=== PATIENT | female | born 1950 | race Caucasian/White ===

== ENCOUNTER → 2024-06-10 | Outpatient (CLI) | payer OTHER, SELFPAY ==
--- NOTE | 2024-06-10 08:03 | XR_ITS ---
Examination: Diagnostic digital mammography, unilateral, left Computer aided detection 3-D breast Tomosynthesis, unilateral Date and time of exam: June 10, 2024 at 0811 hours INDICATIONS: Status post stereotactic breast biopsy microcalcifications outer lower left breast May 08, 2024 Technique: Nonmagnified MLO, CC views of the left breast have been obtained, reconstructed from 3-D Tomosynthesis images. R2 computer aided detection program utilized for evaluation of suspicious masses and/or abnormal calcifications. 3-D Tomosynthesis images obtained. Findings: The breast is heterogeneously dense, which may obscure small masses Breast biopsy marker upper outer left breast with a few calcifications No suspicious mass Impression: BI-RADS category 3: Probably benign findings Six-month left mammogram follow-up is needed
== END | disposition home or self-care (01) ==
LOC: CDIM 08:00
PROVIDERS: Referring Provider Surgery; Visit Provider Surgery
DX: R92.332 Mammographic heterogeneous density, left breast (principal); R92.0 Mammographic microcalcification found on diagnostic imaging of breast; C50.512 Malignant neoplasm of lower-outer quadrant of left female breast
CPT/HCPCS: 77061; 77065; G0279

== ENCOUNTER → 2024-06-19 | Outpatient (CLI) | payer OTHER, SELFPAY ==
[2024-06-19 13:24] LABS: Basophils # (Auto) 0.1 Thou/mm3 (0.0-0.2); Basophils % (Auto) 1 % (0-2.5); Eosinophils # (Auto) 0.3 Thou/mm3 (0.0-0.5); Eosinophils % (Auto) 5 % (0-10); Immature Granulocytes % (Auto) 0 % (0-0); Immature Granulocytes Auto 0.01 Thou/mm3 (0.00-0.00); Lymphocytes # (Auto) 1.6 Thou/mm3 (1.0-4.8); Lymphocytes % (Auto) 29 % (10-50); Mean Corpuscular HGB Conc 34.1 g/dl (31.0-37.0); Mean Corpuscular Volume 88 fL (80-100); Monocytes # (Auto) 0.6 Thou/mm3 (0.0-0.8); Monocytes % (Auto) 12 % (0-12); Neutrophils # (Auto) 2.9 Thou/mm3 (1.8-7.7); Neutrophils % (Auto) 53 % (37-80); Nucleated Red Blood Cell % 0 /100 WBC (0); Platelet Count 247 Thou/mm3 (140-440); RDW Standard Deviation 39.8 fL (36.4-46.3); Red Blood Count 4.66 Miln/mm3 (4.00-5.20); White Blood Count 5.4 Thou/mm3 (3.6-11.0)
[2024-06-19 13:39] LABS: Anion Gap 4 (7-16); BUN/Creatinine Ratio 17 Ratio (12-20); Blood Urea Nitrogen 17 mg/dL (9-23); Calcium 9.1 mg/dL (8.3-10.6); Carbon Dioxide 31.8 mMol/L (20.0-31.0); Chloride 100 mMol/L (98-107); Glucose 105 mg/dL (74-106); Osmolality,Calculated 273 (275-295); Potassium 3.6 mMol/L (3.4-5.1); Sodium 136 mMol/L (136-145); eGFR 59 See Note
== END | disposition home or self-care (01) ==
LOC: COPL 12:57
PROVIDERS: PCP Nurse Practitioner Family; Referring Provider Surgery; Visit Provider Surgery
DX: C50.512 Malignant neoplasm of lower-outer quadrant of left female breast (principal)
CPT/HCPCS: 36415; 80048; 85025

== ENCOUNTER 2024-08-04 08:43 | Outpatient (RCR) | payer OTHER, SELFPAY ==
--- NOTE | 2024-08-04 10:20 | CTCCONSULT_ITS ---
Patient: DARSHAN MEDLEY : 1950 MR#: [id number] Page 2 of 2 CONSULTATION NOTE DATE OF CONSULTATION: 08/04/2024 NAME: DARSHAN MEDLEY ACCOUNT: [id number] : 1950 AGE: 74 REFERRING PHYSICIAN: Can Buck MD PRIMARY PHYSICIAN: Can Buck MD REASON FOR VISIT: Establishing care for breast cancer ONCOLOGY HISTORY: DIAGNOSIS: Invasive ductal carcinoma of the left breast s/p lumpectomy on 06/25/2024 DATE OF DIAGNOSIS: 05/08/2024 STAGE/TNM: Stage I T1 a N X M X ER/NE positive HER2 negative Pathology showed invasive ductal carcinoma 2 x 1 x 1 mm overall grade 1 DCIS not identified TREATMENT HISTORY: Care?Plan Start?Date Cycle Day Intent Anastrozole 1 mg started on 08/04/2024 HISTORY OF PRESENT ILLNESS: 74-year-old female with a history of hypertension anxiety heart disease and skin cancers including ba arsh cell carcinoma and squamous cell cancer is recently diagnosed with breast cancer. Patient have l umpectomy and was found to have a very small tumor. No lymph nodes were removed and all the margins were negative. Patient have healed well from surgery and here to establish care. OTHER MEDICAL HISTORY/CONDITIONS: HTN Heart?valve?issue?-??SagarReddy Jarvis?TKA-?2019;?2020 T?and?A?-?age?2 FAMILY HISTORY: Father:?Bladder?-?dx?78 Mother:?Glioblastoma?-?age?80 Sibling:?Sister?-?appendiceal?-?66 Cancer History:?Mat great-grandmother- breast; Mat grandma- esphoagus - dx 8 SOCIAL HISTORY: Occupational?History:?Retired - [employer] Education?Level:?Completed High School Marital?Status:? Tobacco?Use:?Denies?- ETOH?Use:?Glass?wine?daily?-?x?40yrs Drug?Note:?Denies Social?History?Note:?Lives?with? [employer] FOREMAN HISTORY: Menarche?-?Age:?13 Menopause:?age?53 :?3 Live?Births:?3 Age?1st?:?20 MEDICATIONS: 1. None Medications Last Reconciled by Phylicia Lyons RN on 08/04/2024 ALLERGIES: Penicillins REVIEW OF SYSTEMS: A complete 14-point review of systems was performed and is negative except as noted in interval histo ry. PHYSICAL EXAMINATION: VITAL SIGNS: Temperature?99.6, B/P?145/80, Height?64?inches, Oxygen?Saturation?97% Weight?210?lbs PAIN: 0 - No pain ECOG Performance Status: 0 - Asymptomatic and fully active GENERAL APPEARANCE: Appears well, in no apparent distress, appropriately interactive. HEENT: Normocephalic, no temporal wasting, normal conjunctiva, no scleral icterus, normal hearing, li ps without lesions, neck normal range of motion. CARDIOVASCULAR: Not assessed. PULMONARY: Normal respiratory effort, no respiratory distress or use of accessory muscles, speaking i n full sentences, no tachypnea. EXTREMITIES: No pedal edema or cyanosis. SKIN: Normal skin appearance. NEUROLOGIC: Alert and oriented x4. PSHYCHIATRIC: Appropriate affect, mood normal, behavior normal, intact thought and speech. Breast examination reveals well-healed site on the left breast. No palpable masses in either breast or axilla LABORATORY DATA: I have personally reviewed and interpreted each of the patient?s relevant lab tests, abnormal finding s are below: Date ASSESSMENT/PLAN: #1 stage I breast cancer Patient have a very small tumor which was removed with a lumpectomy No lymph nodes were accessed Will start on anastrozole 1 mg tablet and plan for at least 7 years Bone density reviewed and was normal in 2022 Advised to take calcium and vitamin D3 daily Will see her back in 4 weeks to see the tolerance to the drug Discussed side effects of the medication including hot flashes vaginal dryness low sexual libido and the risk of worsening osteoporosis As patient have strong bones will continue to monitor the bone with bone density CBC CMP bone density RETURN TO CLINIC: 4 weeks with video visit BILLING AND COMPLIANCE: I reviewed external records from providers outside my specialty as summarized above. I spent a total of 50 minutes on this patient?s care on the day of their visit excluding time spent related to any bi lled procedures. This time includes time spent with the patient as well as time spent documenting in the medical record, reviewing patients records and tests, obtaining history, placing orders, communi cating with other healthcare professionals, counseling the patient, family or caregiver, and/or care coordination for the diagnoses above. Electronically Signed by: Serge Henry MD T: 10:16 AM CC: PCP: Can Buck Referring: Can Buck This document was completed utilizing speech recognition software. Grammatical errors, random word in sertions, pronoun errors, and incomplete sentences are an occasional consequence of this system due t o software limitations, ambient noise, and hardware issues. Any formal questions or concerns about th e content, text or information contained within the body of this dictation should be directly address ed to the provider for clarification.
== END 2024-08-08 23:59 | disposition home or self-care (01) ==
LOC: SCTC 08:43
PROVIDERS: PCP Nurse Practitioner Family; Referring Provider Surgery; Visit Provider Internal Medicine Hematology & Oncology
DX: C50.512 Malignant neoplasm of lower-outer quadrant of left female breast (principal); Z17.0 Estrogen receptor positive status [ER+]; Z17.21 Progesterone receptor positive status; Z17.32 Human epidermal growth factor receptor 2 negative status; Z79.811 Long term (current) use of aromatase inhibitors; M81.0 Age-related osteoporosis without current pathological fracture; Z90.12 Acquired absence of left breast and nipple
CPT/HCPCS: 99213; G0463

== ENCOUNTER → 2024-09-02 | Outpatient (CLI) | payer OTHER, SELFPAY ==
[2024-09-02 13:56] LABS: Basophils # (Auto) 0.1 Thou/mm3 (0.0-0.2); Basophils % (Auto) 1 % (0-2.5); Eosinophils # (Auto) 0.3 Thou/mm3 (0.0-0.5); Eosinophils % (Auto) 4 % (0-10); Hematocrit 41.1 % (36.0-46.0); Hemoglobin 13.9 g/dL (12.0-16.0); Immature Granulocytes % (Auto) 0 % (0-0); Immature Granulocytes Auto 0.01 Thou/mm3 (0.00-0.00); Lymphocytes # (Auto) 2.1 Thou/mm3 (1.0-4.8); Lymphocytes % (Auto) 34 % (10-50); Mean Corpuscular HGB Conc 33.8 g/dl (31.0-37.0); Mean Corpuscular Hemoglobin 29.8 pg (25.0-35.0); Mean Corpuscular Volume 88 fL (80-100); Monocytes # (Auto) 0.7 Thou/mm3 (0.0-0.8); Monocytes % (Auto) 11 % (0-12); Neutrophils # (Auto) 3.1 Thou/mm3 (1.8-7.7); Neutrophils % (Auto) 50 % (37-80); Nucleated Red Blood Cell % 0 /100 WBC (0); Platelet Count 257 Thou/mm3 (140-440); RDW Standard Deviation 40.9 fL (36.4-46.3); Red Blood Count 4.67 Miln/mm3 (4.00-5.20); White Blood Count 6.1 Thou/mm3 (3.6-11.0)
[2024-09-02 14:37] LABS: Alanine Aminotransferase 17 U/L (10-49); Albumin, Serum 3.9 gm/dL (3.4-4.8); Albumin/Globulin Ratio 1.6 (1.2-2.2); Anion Gap 8 (7-16); Aspartate Amino Transferase 19 U/L (0-34); BUN/Creatinine Ratio 15 Ratio (12-20); Bilirubin,Total 0.7 mg/dL (0.3-1.2); Blood Urea Nitrogen 17 mg/dL (9-23); Calcium 9.3 mg/dL (8.3-10.6); Calcium (Corrected) 9.4 mg/dL (8.5-10.1); Carbon Dioxide 30.1 mMol/L (20.0-31.0); Chloride 100 mMol/L (98-107); Creatinine (Component) 1.1 mg/dL (0.6-1.3); Globulin 2.5 gm/dL (2.3-3.5); Glucose 97 mg/dL (74-106); Osmolality,Calculated 277 (275-295); Potassium 4.2 mMol/L (3.4-5.1); Sodium 138 mMol/L (136-145); Total Protein 6.4 gm/dL (5.7-8.2); eGFR 52 See Note
[2024-09-02 14:55] LABS: Alkaline Phosphatase 69 U/L (46-116)
== END | disposition home or self-care (01) ==
LOC: SCTO 13:30
PROVIDERS: PCP Family Medicine; Referring Provider Internal Medicine Hematology & Oncology; Visit Provider Internal Medicine Hematology & Oncology
DX: C50.412 Malignant neoplasm of upper-outer quadrant of left female breast (principal)
CPT/HCPCS: 36415; 80053; 85025

== ENCOUNTER 2024-09-11 15:07 | Outpatient (RCR) | payer OTHER, SELFPAY ==
--- NOTE | 2024-09-15 01:17 | CTCFLWUP_ITS ---
Patient: DARSHAN MEDLEY : 1950 Page 2 of 4 FOLLOW UP NOTE DATE OF SERVICE: 09/11/2024 NAME: DARSHAN MEDLEY ACCOUNT: [id number] : 1950 AGE: 74 INTERVAL HISTORY: Patient was started on anastrozole and video appointment was made to see if patient is tolerating the medicine well. Patient is doing well and denies any complaints ONCOLOGY HISTORY:?[facility] Hx? DIAGNOSIS: Invasive ductal carcinoma of the left breast s/p lumpectomy on 06/25/2024 DATE OF DIAGNOSIS: 05/08/2024 STAGE/TNM: Stage I T1 a N X M X ER/NH positive HER2 negative Pathology showed invasive ductal carcinoma 2 x 1 x 1 mm overall grade 1 DCIS not identified TREATMENT HISTORY: Care?Plan Start?Date Cycle Day Intent HISTORY OF PRESENT ILLNESS: 74-year-old female with a history of hypertension anxiety heart disease and skin cancers including basal cell carcinoma and squamous cell cancer is recently diagnosed with breast cancer. Patient have lumpectomy and was found to have a very small tumor. No lymph nodes were removed and all the margins were negative. Patient have healed well from surgery and here to establish care. OTHER MEDICAL HISTORY/CONDITIONS: HTN Heart?valve?issue?-??SagarReddy Jarvis?TKA-?2019;?2020 T?and?A?-?age?2 FAMILY HISTORY: Father:?Bladder?-?dx?78 Mother:?Glioblastoma?-?age?80 Sibling:?Sister?-?appendiceal?-?66 Cancer History:?Mat great-grandmother- breast; Mat grandma- esphoagus - dx 8 SOCIAL HISTORY: Occupational?History:?Retired - [employer] Education?Level:?Completed High School Marital?Status:? Tobacco?Use:?Denies?- ETOH?Use:?Glass?wine?daily?-?x?40yrs Drug?Note:?Denies Social?History?Note:?Lives?with? [employer] JUDGE HISTORY: Menarche?-?Age:?13 Menopause:?age?53 :?3 Live?Births:?3 Age?1st?:?20 MEDICATIONS: 1. ALPRAZolam - 0.5 mg 0.5 tab Every day before sleep 2. anastrozole - 1 mg 1 tab Daily 3. atenolol - 25 mg 1 tab Twice a Day 4. hydrochlorothiazide - 25 mg 1 tab Daily 5. omeprazole - 20 mg 1 Every other day?Palabra Meds? Medications Last Reconciled by Page Serrano MA on 09/11/2024 ALLERGIES: Penicillins REVIEW OF SYSTEMS: A complete 14-point review of systems was performed and is negative except as noted in interval history. PHYSICAL EXAMINATION:?[facility] PE? VITAL SIGNS: PAIN: 0 - No pain ECOG Performance Status: 0 - Asymptomatic and fully active GENERAL APPEARANCE: Appears well, in no apparent distress, appropriately interactive. HEENT: Normocephalic, no temporal wasting, normal conjunctiva, no scleral icterus, normal hearing, lips without lesions, neck normal range of motion. CARDIOVASCULAR: Not assessed. PULMONARY: Normal respiratory effort, no respiratory distress or use of accessory muscles, speaking in full sentences, no tachypnea. EXTREMITIES: No pedal edema or cyanosis. SKIN: Normal skin appearance. NEUROLOGIC: Alert and oriented x4. PSHYCHIATRIC: Appropriate affect, mood normal, behavior normal, intact thought and speech. Breast examination reveals well-healed site on the left breast. No palpable masses in either breast or axilla LABORATORY DATA: I have personally reviewed and interpreted each of the patient?s relevant lab tests, abnormal findings are below: Date 09/02/24 ??WHITE?BLOOD?COUNT?(Thou/mm3) 6.1 ??RED?BLOOD?COUNT?(Miln/mm3) 4.67 ??HEMOGLOBIN?(gm/dl) 13.9 ??HEMATOCRIT?(%) 41.1 ??PLATELET?COUNT?(Thou/mm3) 257 ??NEUTROPHILS?%,?AUTO?(%) 50 ??LYMPH?%,?AUTO?(%) 34 ??NEUTROPHILS,?AUTO?(Thou/mm3) 3.1 ??GLUCOSE,RANDOM?(mg/dL) 97 ??BLOOD?UREA?NITROGEN?(mg/dL) 17 ??CREATININE?(mg/dL) 1.10 ??SODIUM?(mmol/L) 138 ??POTASSIUM?(mmol/L) 4.2 ??CHLORIDE?(mmol/L) 100 ??CrCl?(CandG)?(ml/min) 49.94 ??AST/SGOT?(Unit/L) 19 ??ALT/SGPT?(Unit/L) 17 ??ALKALINE?PHOSPHATASE?(Unit/L) 69 ??BILIRUBIN,?TOTAL?(mg/dL) 0.7 ??PROTEIN?TOTAL?(gm/dl) 6.4 ??ALBUMIN,?SERUM?(gm/dl) 3.9 ??GLOBULIN?(gm/dl) 2.5 ??ALBUMIN/GLOBULIN?RATIO 1.6 ??CALCIUM,?SERUM?(mg/dL) 9.3 ??CALCIUM?SERUM?(CORRECTED)?(mg/dL) 9.4 ASSESSMENT/PLAN:?Stacie Henry Assessment/Plan? #1 stage I breast cancer Patient have a very small tumor which was removed with a lumpectomy No lymph nodes were accessed Patient is on anastrozole 1 mg tablet and plan for at least 7 years. Tolerating well Bone density reviewed and was normal in 2022 Advised to take calcium and vitamin D3 daily Will see her back in 4 weeks to see the tolerance to the drug Discussed side effects of the medication including hot flashes vaginal dryness low sexual libido and the risk of worsening osteoporosis As patient have strong bones will continue to monitor the bone with bone density CBC CMP bone density ORDERS: CA 15-3 bone density RETURN TO CLINIC: I will see her back in the clinic in 6 month. BILLING AND COMPLIANCE: I reviewed external records from providers outside my specialty as summarized above. I spent a total of 50 minutes on this patient?s care on the day of their visit excluding time spent related to any billed procedures. This time includes time spent with the patient as well as time spent documenting in the medical record, reviewing patients records and tests, obtaining history, placing orders, communicating with other healthcare professionals, counseling the patient, family or caregiver, and/or care coordination for the diagnoses above. Electronically Signed by: Serge Henry MD T: 1:15 AM CC: PCP: Jose López Referring: Jose López This document was completed utilizing speech recognition software. Grammatical errors, random word insertions, pronoun errors, and incomplete sentences are an occasional consequence of this system due to software limitations, ambient noise, and hardware issues. Any formal questions or concerns about the content, text or information contained within the body of this dictation should be directly addressed to the provider for clarification.
== END 2024-10-06 23:59 | disposition home or self-care (01) ==
LOC: SCTC 15:07
PROVIDERS: PCP Family Medicine; Referring Provider Family Medicine; Visit Provider Internal Medicine Hematology & Oncology
DX: C50.512 Malignant neoplasm of lower-outer quadrant of left female breast (principal); Z17.0 Estrogen receptor positive status [ER+]; Z17.21 Progesterone receptor positive status; Z17.32 Human epidermal growth factor receptor 2 negative status; Z90.12 Acquired absence of left breast and nipple
CPT/HCPCS: 99212; G0463

== ENCOUNTER → 2024-12-15 | Outpatient (CLI) | payer OTHER, SELFPAY ==
--- NOTE | 2024-12-15 10:15 | XR_ITS ---
Examination: Diagnostic digital mammography, unilateral, left Computer aided detection 3-D breast Tomosynthesis, unilateral Date and time of exam: December 15, 2024 0952 hours INDICATIONS: History stereotactic breast biopsy microcalcifications outer lower left breast Compared to mammograms dating to May 25, 2023 Technique: Nonmagnified MLO, CC views of the left breast have been obtained, reconstructed from 3-D Tomosynthesis images. R2 computer aided detection program utilized for evaluation of suspicious masses and/or abnormal calcifications. 3-D Tomosynthesis images obtained. Findings: Scattered areas of fibroglandular density. Surgical clips outer left breast with scattered microcalcifications in extensive scar formation Impression: BI-RADS category 3: Probably benign findings One additional 6 month left mammogram follow-up is needed to document stability of architectural distortion left breast
== END | disposition home or self-care (01) ==
LOC: CDIM 09:44
PROVIDERS: PCP Nurse Practitioner Family; Referring Provider Surgery; Visit Provider Surgery
DX: R92.332 Mammographic heterogeneous density, left breast (principal); R92.8 Other abnormal and inconclusive findings on diagnostic imaging of breast
CPT/HCPCS: 77061; 77065; G0279

== ENCOUNTER → 2025-01-05 | Outpatient (CLI) | payer OTHER, SELFPAY ==
[2025-01-05 16:21] LABS: Basophils # (Auto) 0.1 Thou/mm3 (0.0-0.2); Basophils % (Auto) 1 % (0-2.5); Eosinophils # (Auto) 0.2 Thou/mm3 (0.0-0.5); Eosinophils % (Auto) 4 % (0-10); Hematocrit 40.3 % (36.0-46.0); Hemoglobin 13.7 g/dL (12.0-16.0); Immature Granulocytes % (Auto) 0 % (0-0); Immature Granulocytes Auto 0.02 Thou/mm3 (0.00-0.00); Lymphocytes # (Auto) 2.1 Thou/mm3 (1.0-4.8); Lymphocytes % (Auto) 33 % (10-50); Mean Corpuscular Hemoglobin 30.4 pg (25.0-35.0); Mean Corpuscular Volume 90 fL (80-100); Monocytes # (Auto) 0.7 Thou/mm3 (0.0-0.8); Monocytes % (Auto) 11 % (0-12); Neutrophils # (Auto) 3.3 Thou/mm3 (1.8-7.7); Neutrophils % (Auto) 51 % (37-80); Nucleated Red Blood Cell % 0 /100 WBC (0); Platelet Count 243 Thou/mm3 (140-440); White Blood Count 6.4 Thou/mm3 (3.6-11.0)
[2025-01-05 16:34] LABS: Alanine Aminotransferase 16 U/L (10-49); Albumin/Globulin Ratio 1.6 (1.2-2.2); Alkaline Phosphatase 61 U/L (46-116); Anion Gap 6 (7-16); Aspartate Amino Transferase 22 U/L (0-34); BUN/Creatinine Ratio 14 Ratio (12-20); Bilirubin,Total 0.9 mg/dL (0.3-1.2); Blood Urea Nitrogen 14 mg/dL (9-23); Calcium 9.3 mg/dL (8.3-10.6); Calcium (Corrected) 9.3 mg/dL (8.5-10.1); Carbon Dioxide 32.1 mMol/L (20.0-31.0); Chloride 104 mMol/L (98-107); Globulin 2.5 gm/dL (2.3-3.5); Glucose 100 mg/dL (74-106); Osmolality,Calculated 283 (275-295); Potassium 4.1 mMol/L (3.4-5.1); Sodium 142 mMol/L (136-145); Total Protein 6.5 gm/dL (5.7-8.2); eGFR 59 See Note
[2025-01-05 16:51] LABS: CA 15-3 11.7 U/mL (<32.4)
== END | disposition home or self-care (01) ==
LOC: SCTO 14:58
PROVIDERS: PCP Nurse Practitioner Family; Referring Provider Internal Medicine Hematology & Oncology; Visit Provider Internal Medicine Hematology & Oncology
DX: C50.412 Malignant neoplasm of upper-outer quadrant of left female breast (principal)
CPT/HCPCS: 36415; 80053; 85025; 86300

== ENCOUNTER 2025-01-12 13:12 | Outpatient (RCR) | payer OTHER, SELFPAY ==
--- NOTE | 2025-01-14 07:16 | CTCFLWUP_ITS ---
Patient: GLORIA MEDLEY : 1950 Page 2 of 5 FOLLOW UP NOTE DATE OF SERVICE: 01/12/2025 NAME: GLORIA MEDLEY ACCOUNT: [id number] : 1950 AGE: 74 INTERVAL HISTORY: Patient was started on anastrozole and video appointment was made to see if patient is tolerating the medicine well. Patient is doing well and denies any complaints Chief Complaint - Dry eyes - Other aches and pains Laboratory, Imaging, and Diagnostic Test Results - Blood work: - BUN: Slightly elevated (exact value not provided) - GFR: 59 (normal =60) ONCOLOGY HISTORY:?[facility] Hx? DIAGNOSIS: Invasive ductal carcinoma of the left breast s/p lumpectomy on 06/25/2024 DATE OF DIAGNOSIS: 05/08/2024 STAGE/TNM: Stage I T1 a N X M X ER/NM positive HER2 negative Pathology showed invasive ductal carcinoma 2 x 1 x 1 mm overall grade 1 DCIS not identified TREATMENT HISTORY: Care?Plan Start?Date Cycle Day Intent HISTORY OF PRESENT ILLNESS: 74-year-old female with a history of hypertension anxiety heart disease and skin cancers including basal cell carcinoma and squamous cell cancer is recently diagnosed with breast cancer. Patient have lumpectomy and was found to have a very small tumor. No lymph nodes were removed and all the margins were negative. Patient have healed well from surgery and here to establish care. OTHER MEDICAL HISTORY/CONDITIONS: HTN Heart?valve?issue?-?Dr.?SagarReddy Jarvis?TKA-?2019;?2020 T?and?A?-?age?2 FAMILY HISTORY: Father:?Bladder?-?dx?78 Mother:?Glioblastoma?-?age?80 Sibling:?Sister?-?appendiceal?-?66 Cancer History:?Mat great-grandmother- breast; Mat grandma- esphoagus - dx 8 SOCIAL HISTORY: Occupational?History:?Retired - [employer] Education?Level:?Completed High School Marital?Status:? Tobacco?Use:?Denies?- ETOH?Use:?Glass?wine?daily?-?x?40yrs Drug?Note:?Denies Social?History?Note:?Lives?with? PICU NURSE HISTORY: Menarche?-?Age:?13 Menopause:?age?53 :?3 Live?Births:?3 Age?1st?:?20 MEDICATIONS: 1. ALPRAZolam - 0.5 mg 0.5 tab Every day before sleep 2. anastrozole - 1 mg 1 tab Daily 3. atenolol - 25 mg 1 tab Twice a Day 4. hydrochlorothiazide - 25 mg 1 tab Daily 5. omeprazole - 20 mg 1 Every other day?Palabra Meds? Medications Last Reconciled by Page Serrano MA on 01/12/2025 ALLERGIES: Penicillins REVIEW OF SYSTEMS: A complete 14-point review of systems was performed and is negative except as noted in interval history. PHYSICAL EXAMINATION:?[facility]Block PE? VITAL SIGNS: Temperature?99.2, B/P?125/77, Oxygen?Saturation?98% Weight?211?lbs PAIN: 0 - No pain ECOG Performance Status: 0 - Asymptomatic and fully active GENERAL APPEARANCE: Appears well, in no apparent distress, appropriately interactive. HEENT: Normocephalic, no temporal wasting, normal conjunctiva, no scleral icterus, normal hearing, lips without lesions, neck normal range of motion. CARDIOVASCULAR: Not assessed. PULMONARY: Normal respiratory effort, no respiratory distress or use of accessory muscles, speaking in full sentences, no tachypnea. EXTREMITIES: No pedal edema or cyanosis. SKIN: Normal skin appearance. NEUROLOGIC: Alert and oriented x4. PSHYCHIATRIC: Appropriate affect, mood normal, behavior normal, intact thought and speech. Breast examination reveals well-healed site on the left breast. No palpable masses in either breast or axilla LABORATORY DATA: I have personally reviewed and interpreted each of the patient?s relevant lab tests, abnormal findings are below: Date 09/02/24 01/05/25 ??WHITE?BLOOD?COUNT?(Thou/mm3) 6.1 6.4 ??RED?BLOOD?COUNT?(Miln/mm3) 4.67 4.50 ??HEMOGLOBIN?(gm/dl) 13.9 13.7 ??HEMATOCRIT?(%) 41.1 40.3 ??PLATELET?COUNT?(Thou/mm3) 257 243 ??NEUTROPHILS?%,?AUTO?(%) 50 51 ??LYMPH?%,?AUTO?(%) 34 33 ??NEUTROPHILS,?AUTO?(Thou/mm3) 3.1 3.3 ??GLUCOSE,RANDOM?(mg/dL) 97 100 ??BLOOD?UREA?NITROGEN?(mg/dL) 17 14 ??CREATININE?(mg/dL) 1.10 1.00 ??SODIUM?(mmol/L) 138 142 ??POTASSIUM?(mmol/L) 4.2 4.1 ??CHLORIDE?(mmol/L) 100 104 ??CrCl?(CandG)?(ml/min) 49.94 54.93 ??AST/SGOT?(Unit/L) 19 22 ??ALT/SGPT?(Unit/L) 17 16 ??ALKALINE?PHOSPHATASE?(Unit/L) 69 61 ??BILIRUBIN,?TOTAL?(mg/dL) 0.7 0.9 ??PROTEIN?TOTAL?(gm/dl) 6.4 6.5 ??ALBUMIN,?SERUM?(gm/dl) 3.9 4.0 ??GLOBULIN?(gm/dl) 2.5 2.5 ??ALBUMIN/GLOBULIN?RATIO 1.6 1.6 ??CALCIUM,?SERUM?(mg/dL) 9.3 9.3 ??CALCIUM?SERUM?(CORRECTED)?(mg/dL) 9.4 9.3 ASSESSMENT/PLAN:?Stacie Henry Assessment/Plan? #1 stage I breast cancer Patient have a very small tumor which was removed with a lumpectomy No lymph nodes were accessed Patient is on anastrozole 1 mg tablet and plan for at least 7 years. Tolerating well Bone density reviewed and was normal in 2022 Advised to take calcium and vitamin D3 daily Will see her back in 4 weeks to see the tolerance to the drug Discussed side effects of the medication including hot flashes vaginal dryness low sexual libido and the risk of worsening osteoporosis As patient have strong bones will continue to monitor the bone with bone density CBC CMP bone density Gloria Medley, female patient with history of breast cancer, presenting for follow-up on anti-endocrine therapy and management of associated side effects. Breast Cancer Assessment: Patient has a history of breast cancer, which was characterized as tiny, grade one, score one, and 93% hormone-positive. The patient is currently on anti-endocrine therapy, which is expected to be very effective given the hormone-positive nature of the cancer. The patient reports some side effects, including dry eyes, which are unlikely to be related to the medication. Overall, the patient is tolerating the treatment well, with only minor aches and pains reported. Plan: - Continue current anti-endocrine therapy - Order bilateral mammogram to be completed by June - Order Pili test (bladder test for cancer DNA) for monitoring - Perform breast exam during current visit - Schedule bone density test at exactly 2 years from initiation of therapy (insurance requirement) Dry Eyes Assessment: Patient reports experiencing dry eyes, which is being managed with eye drops as prescribed by an surgeon/president. This symptom is assessed as unlikely to be related to the current anti-endocrine therapy. Plan: - Continue current management with eye drops as prescribed by surgeon/president Mild Renal Insufficiency Assessment: Recent blood work reveals slightly elevated BUN and borderline low GFR (59, with normal being 60), indicating mild renal insufficiency. This may be due to inadequate hydration, potentially exacerbated by diuretic effects of tea consumption. Plan: - Educate patient on importance of increased water intake, especially given diuretic effects of tea - Monitor renal function with future blood work ORDERS: Order # Description [id number] Comprehensive Metabolic Panel - 12 + CBC with Auto Diff + MD Follow Up 6 Month RETURN TO CLINIC: I reviewed the diagnosis, prognosis, and recommended treatment/procedure options with the patient (and/or their legal energy conservation representative), including the potential benefits, risks, side effects and alternative therapies. We also discussed the option of no treatment and the possibility of clinical trial participation, if applicable. All questions were addressed, and they demonstrated understanding. They provided informed consent to proceed with the proposed plan of care. BILLING AND COMPLIANCE: I reviewed external records from providers outside my specialty as summarized above. I spent a total of 50 minutes on this patient?s care on the day of their visit excluding time spent related to any billed procedures. This time includes time spent with the patient as well as time spent documenting in the medical record, reviewing patients records and tests, obtaining history, placing orders, communicating with other healthcare professionals, counseling the patient, family or caregiver, and/or care coordination for the diagnoses above. Electronically Signed by: Serge Henry MD T: 7:14 AM CC: PCP: Michelle Cross Referring: Michelle Cross This document was completed utilizing speech recognition software. Grammatical errors, random word insertions, pronoun errors, and incomplete sentences are an occasional consequence of this system due to software limitations, ambient noise, and hardware issues. Any formal questions or concerns about the content, text or information contained within the body of this dictation should be directly addressed to the provider for clarification.
== END 2025-02-05 23:59 | disposition home or self-care (01) ==
LOC: SCTC 13:12
PROVIDERS: PCP Nurse Practitioner Family; Referring Provider Nurse Practitioner Family; Visit Provider Internal Medicine Hematology & Oncology
DX: C50.412 Malignant neoplasm of upper-outer quadrant of left female breast (principal); Z17.0 Estrogen receptor positive status [ER+]; Z17.21 Progesterone receptor positive status; Z17.32 Human epidermal growth factor receptor 2 negative status; Z90.12 Acquired absence of left breast and nipple; Z79.811 Long term (current) use of aromatase inhibitors; H04.123 Dry eye syndrome of bilateral lacrimal glands; N28.9 Disorder of kidney and ureter, unspecified
CPT/HCPCS: 99212; G0463

== ENCOUNTER → 2025-02-13 | Outpatient (CLI) | payer OTHER, SELFPAY ==
--- NOTE | 2025-02-13 10:15 | XR_ITS ---
Examination: Screening digital mammography, bilateral Computer aided detection 3-D breast Tomosynthesis, bilateral Date and time of exam: February 23, 2025 1012 hours Compared to mammograms dating to 03/25/2024 Indication: Screening Technique: Nonmagnified MLO, CC views of the breasts to been obtained, reconstructed from 3-D Tomosynthesis images. R2 computer aided detection program utilized for evaluation of suspicious masses and/or abnormal calcifications. 3-D Tomosynthesis images obtained. Findings: Scattered areas of fibroglandular density. Extensive scar formation and surgical clips upper outer left breast consistent with patient's history treated left breast cancer No interval suspicious masses Impression: BI-RADS category II: Benign Findings. Recommend 1 year follow-up mammogram.
== END | disposition home or self-care (01) ==
PROVIDERS: PCP Internal Medicine Hematology & Oncology; Referring Provider Internal Medicine Hematology & Oncology; Visit Provider Internal Medicine Hematology & Oncology
DX: R92.323 Mammographic fibroglandular density, bilateral breasts (principal); C50.412 Malignant neoplasm of upper-outer quadrant of left female breast
CPT/HCPCS: 77063; 77067

== ENCOUNTER → 2025-05-06 | Outpatient (CLI) | payer OTHER, SELFPAY ==
--- NOTE | 2025-05-06 14:00 | XR_ITS ---
EXAMINATION: Thyroid sonography complete TECHNIQUE: Grayscale sonographic image of the thyroid lobes Date and time: May 06, 2025, 1405 hours INDICATIONS: Thyroid sonogram February 22, 2024 mid pole right thyroid nodule 7 mm FINDINGS: Right thyroid 3.6 cm Midpole nodule 7 x 6 mm Lower pole nodule 5 x 4 mm Multiple smaller nodules Left thyroid 3.6 cm Midpole cyst 4 x 4 millimeter IMPRESSION: Multiple small right thyroid nodules, consider continued 6-month follow-up
== END | disposition home or self-care (01) ==
PROVIDERS: PCP Nurse Practitioner Family; Referring Provider Nurse Practitioner Family; Visit Provider Nurse Practitioner Family
DX: E04.2 Nontoxic multinodular goiter (principal)
CPT/HCPCS: 76536

== ENCOUNTER → 2025-05-14 | Outpatient (CLI) | payer OTHER, SELFPAY ==
[2025-05-14 10:19] LABS: Collection Type, Urine Clean Catch; Squamous Epithelial Cell,Urine 0 /hpf (0-5)
[2025-05-14 10:46] LABS: Basophils # (Auto) 0.1 Thou/mm3 (0.0-0.2); Basophils % (Auto) 1 % (0-2.5); Eosinophils # (Auto) 0.1 Thou/mm3 (0.0-0.5); Eosinophils % (Auto) 3 % (0-10); Hematocrit 42.5 % (36.0-46.0); Hemoglobin 14.0 g/dL (12.0-16.0); Immature Granulocytes Auto 0.01 Thou/mm3 (0.00-0.00); Lymphocytes # (Auto) 1.5 Thou/mm3 (1.0-4.8); Lymphocytes % (Auto) 33 % (10-50); Mean Corpuscular HGB Conc 32.9 g/dl (31.0-37.0); Mean Corpuscular Hemoglobin 29.5 pg (25.0-35.0); Mean Corpuscular Volume 90 fL (80-100); Monocytes # (Auto) 0.5 Thou/mm3 (0.0-0.8); Monocytes % (Auto) 10 % (0-12); Neutrophils # (Auto) 2.4 Thou/mm3 (1.8-7.7); Neutrophils % (Auto) 52 % (37-80); Nucleated Red Blood Cell # 0.00 Thou/mm3 (0.00-0.00); Nucleated Red Blood Cell % 0 /100 WBC (0); Platelet Count 228 Thou/mm3 (140-440); RDW Standard Deviation 40.7 fL (36.4-46.3); Red Blood Count 4.75 Miln/mm3 (4.00-5.20); White Blood Count 4.6 Thou/mm3 (3.6-11.0)
[2025-05-14 10:55] LABS: Bilirubin,Urine Negative (Negative); Blood,Urine Negative (Negative); Clarity,Urine Clear (Clear/Hazy); Color,Urine Lt-Yellow (Lt Yel-Yel); Culture Indicated,Urine Not Indicated; Glucose, Urine Negative (Negative); Ketones,Urine Negative (Negative); Leukocyte Esterase,Urine Negative (Negative); Nitrite,Urine Negative (Negative); PH,Urine 7.0 (5.0-7.0); Protein,Urine Negative (Neg - Trace); RBC,Urine 2 /hpf (0-3); Specific Gravity,Urine 1.019 (1.001-1.035); Urobilinogen,Urine Negative mg/dL (0.0-1.0); WBC,Urine 1 /hpf (0-5)
[2025-05-14 10:56] LABS: Glucose Estimated Average 108 mg/dL (80-131); Hemoglobin A1C 5.4 % Hgb (4.8-6.0)
[2025-05-14 11:05] LABS: Alanine Aminotransferase 12 U/L (10-49); Albumin, Serum 4.4 gm/dL (3.4-4.8); Albumin/Globulin Ratio 2.1 (1.2-2.2); Alkaline Phosphatase 63 U/L (46-116); Anion Gap 9 (7-16); Aspartate Amino Transferase 20 U/L (0-34); BUN/Creatinine Ratio 16 Ratio (12-20); Bilirubin,Total 0.9 mg/dL (0.3-1.2); Blood Urea Nitrogen 14 mg/dL (9-23); Calcium 9.1 mg/dL (8.3-10.6); Calcium (Corrected) 9.1 mg/dL (8.5-10.1); Carbon Dioxide 30.1 mMol/L (20.0-31.0); Cardiac Risk Estimate 2.8 RATIO (3.7-5.6); Chloride 102 mMol/L (98-107); Cholesterol 190 mg/dL (132-200); Creatinine (Component) 0.9 mg/dL (0.6-1.3); Globulin 2.1 gm/dL (2.3-3.5); Glucose 95 mg/dL (74-106); HDL Cholesterol 69 mg/dL (40-60); LDL Cholesterol,Calculated 103 mg/dL (0-130); Osmolality,Calculated 281 (275-295); Potassium 3.8 mMol/L (3.4-5.1); Sodium 141 mMol/L (136-145); Thyroid Stimulating Hormone 2.66 uIU/mL (0.55-4.78); Total Protein 6.5 gm/dL (5.7-8.2); Triglycerides 88 mg/dL (30-150); eGFR > 60 See Note
[2025-05-14 11:12] LABS: T4 (Thyroxine) 8.4 mcg/dL (4.5-10.9)
[2025-05-20 07:38] LABS: T3,Total* 94 ng/dL (76-181); Thyroid Peroxidase Antibodies* <1 IU/mL (<9)
== END | disposition home or self-care (01) ==
LOC: COPL 09:41
PROVIDERS: PCP Family Medicine; Referring Provider Nurse Practitioner Family; Visit Provider Nurse Practitioner Family
DX: Z00.00 Encounter for general adult medical examination without abnormal findings (principal); I10 Essential (primary) hypertension; I34.1 Nonrheumatic mitral (valve) prolapse; E04.1 Nontoxic single thyroid nodule
CPT/HCPCS: 36415; 80053; 80061; 81001; 83036; 84436; 84443; 84480; 85025; 86376

== ENCOUNTER → 2025-06-10 | Outpatient (CLI) | payer OTHER, SELFPAY ==
--- NOTE | 2025-06-10 13:18 | XR_ITS ---
Examination: Foot, left, 3 views Technique: AP, oblique, lateral views foot, 3 views Date and time of exam: June 10, 2025, 1331 hours INDICATIONS: Left foot bunion pain 6 months. FINDINGS: Prominent hallux valgus bunion deformity Advanced osteoarthritis first metatarsophalangeal joint Prominent osteopenia No acute fracture 20 mm plantar bony calcaneal spur IMPRESSION: Prominent hallux valgus bunion deformity Advanced osteoarthritis first metatarsophalangeal joint
== END | disposition home or self-care (01) ==
PROVIDERS: PCP Surgery; Referring Provider Surgery; Visit Provider Surgery
DX: M19.072 Primary osteoarthritis, left ankle and foot (principal); M20.12 Hallux valgus (acquired), left foot; M21.612 Bunion of left foot
CPT/HCPCS: 73630

== ENCOUNTER → 2025-06-17 | Outpatient (CLI) | payer OTHER, SELFPAY ==
--- NOTE | 2025-06-17 | XR_ITS ---
Examination: Diagnostic digital mammography, bilateral Computer aided detection 3-D breast Tomosynthesis, bilateral Date and time of exam: 06/17/2025, 4:16 p.m. Comparisons: April 2024 through February 2025 Indications: Follow-up left breast surgery. Technique: Nonmagnified MLO, CC views of the breasts to been obtained, reconstructed from 3-D Tomosynthesis images. R2 computer aided detection program utilized for evaluation of suspicious masses and/or abnormal calcifications. 3-D Tomosynthesis images obtained. Findings: There are scattered areas of fibroglandular density. Stable postoperative changes left breast no evidence of abnormal masses or suspicious calcifications. Impression: BI-RADS category 2: Benign findings Recommend 1 year follow-up mammogram
== END | disposition home or self-care (01) ==
LOC: CDIM 15:47
PROVIDERS: Referring Provider Surgery; Visit Provider Surgery
DX: R92.323 Mammographic fibroglandular density, bilateral breasts (principal); Z51.89 Encounter for other specified aftercare
CPT/HCPCS: 77062; 77066; G0279